=== PATIENT | male | born 1995 | race Caucasian/White ===

== ENCOUNTER 2018-06-13 16:35 | Emergency (ER) | payer OTHER ==
[2018-06-13] MEDS: ACETAMINOPHEN 325 MG TAB PO (17:59)
== END 2018-06-13 18:04 | disposition home or self-care (01) ==
LOC: M ED 16:35
DX: S01.01XA Laceration without foreign body of scalp, initial encounter (principal); W22.8XXA Striking against or struck by other objects, initial encounter; Y92.9 Unspecified place or not applicable; Y93.02 Activity, running; Y99.1 Military activity
CPT/HCPCS: 99283

== ENCOUNTER 2018-07-05 13:34 | Emergency (ER) | payer OTHER | END 2018-07-05 15:04 | disposition home or self-care (01) | LOC: M ED 13:34 | DX: L03.114 Cellulitis of left upper limb (principal) | CPT/HCPCS: 73080 ==

== ENCOUNTER 2019-01-23 07:31 | Emergency (ER) | payer OTHER ==
[~2019-01-23] VITALS: Ht 180.3 cm; Wt 100.7 kg
[~2019-01-23 07:31] MED LIST: CLEO300C2 PO; IBUP80TA PO
[2019-01-23 08:17] LABS: BASO # 0.1 10^3/uL (0.0-0.2); BASO % 1.1 % (0.0-1.0); EOS # 0.5 10^3/uL (0.0-0.50); EOS % 8.1 % (0.0-3.0); HEMATOCRIT 45.8 % (42.0-52.0); LYMPH # 2.7 10^3/uL (1.5-6.5); LYMPH % 42.7 % (24.0-44.0); MEAN CORPUSCULAR HEMOGLOBIN 29.2 pg (27.0-33.0); MEAN CORPUSCULAR HGB CONC 34.9 g/dl (32.0-36.5); MEAN CORPUSCULAR VOLUME 83.6 fl (80.0-96.0); MONO # 0.6 10^3/uL (0.0-0.8); MONO % 8.8 % (0.0-5.0); NEUTROPHILS # 2.4 10^3/uL (1.8-7.7); PLATELET COUNT, AUTOMATED 286 10^3/uL (150-450); RED BLOOD COUNT 5.48 10^6/uL (4.30-6.10); WHITE BLOOD COUNT 6.3 10^3/uL (4.0-10.0)
[2019-01-23] MEDS: GASTROGRAFIN SOLUTION 30ML PO SCH ×2 (08:29→09:06)
[2019-01-23 08:44] LABS: ALBUMIN 4.1 GM/DL (3.2-5.2); ALT/SGPT 37 U/L (12-78); AMYLASE 66 U/L (25-115); BILIRUBIN,TOTAL 0.5 MG/DL (0.2-1.0); BLOOD UREA NITROGEN 10 MG/DL (7-18); CALCIUM LEVEL 9.1 MG/DL (8.5-10.1); CARBON DIOXIDE LEVEL 27 MEQ/L (21-32); CHLORIDE LEVEL 106 MEQ/L (98-107); CREATININE FOR GFR 1.11 MG/DL (0.70-1.30); GLOMERULAR FILTRATION RATE > 60.0 (>60); GLUCOSE, FASTING 103 MG/DL (70-100); LIPASE 109 U/L (73-393); POTASSIUM SERUM 3.9 MEQ/L (3.5-5.1); SODIUM LEVEL 139 MEQ/L (136-145); TOTAL PROTEIN 7.1 GM/DL (6.4-8.2)
[2019-01-23] MEDS ORDERED: ISOVUE-370 76% 100ML VIAL (Q9967) As Ordered ONE (10:23)
[2019-01-23] MEDS ORDERED: PROT1TAB2 PO (11:07)
[2019-01-23] MEDS ORDERED: CIPR-249 PO (11:07)
[2019-01-23] MEDS ORDERED: CIPROFLOXACIN 500 MG TAB PO ONE (11:15)
[2019-01-23] MEDS ORDERED: PANTOPRAZOLE 40MG TAB (PROTONIX) PO ONE (11:15)
[2019-01-23 11:23] VITALS: BP 137/73
--- NOTE | 2019-01-23 12:48 | REP ---
CT ABDOMEN AND PELVIS WITH ORAL AND IV CONTRAST: TECHNIQUE: Axial contrast enhanced images from the lung bases to the pubic symphysis using 100 mL Isovue 370 intravenous contrast material with multiplanar reformations. Visualized lung bases are clear. The liver, spleen, adrenals, pancreas and kidneys are unremarkable with no mass. There is no hydronephrosis. There is no abdominal aortic aneurysm. There is no adenopathy. There is no free air or free fluid. No bowel wall thickening is seen. There is no evidence of appendicitis. There is no pelvic mass. Urinary bladder is mildly distended and grossly unremarkable. IMPRESSION: Negative CT abdomen and pelvic with oral and IV contrast. No acute findings. Electronically Signed by Thomas Bhakta MD 01/24/2019 03:01 P
== END 2019-01-23 11:29 | disposition home or self-care (01) ==
LOC: M ED 07:31
DX: K92.1 Melena (principal); R19.5 Other fecal abnormalities
CPT/HCPCS: 74177; 80053; 81001; 82150; 83690; 85025; 99284; Q9963; Q9967

== ENCOUNTER 2020-11-21 14:22 | Emergency (ER) | payer OTHER ==
[~2020-11-21] VITALS: Ht 180.3 cm; Wt 100.6 kg
[~2020-11-21 14:22] MED LIST changes: +CIPR-249 PO; +PROT1TAB2 PO
[2020-11-21] MEDS ORDERED: CEPH500C PO (16:30)
[2020-11-21 16:38] VITALS: BP 129/81
== END 2020-11-21 16:44 | disposition home or self-care (01) ==
LOC: M ED 14:22
DX: S61.411A Laceration without foreign body of right hand, initial encounter (principal); W25.XXXA Contact with sharp glass, initial encounter; Y92.019 Unspecified place in single-family (private) house as the place of occurrence of the external cause; Y93.9 Activity, unspecified; Y99.9 Unspecified external cause status